=== PATIENT | male | born 1965 | race Caucasian/White ===

== ENCOUNTER 2023-09-18 18:56 | Inpatient (IN) | payer OTHER, SELFPAY ==
[2023-09-18] VITALS (57 sets, daily range): BP systolic 133–181; BP diastolic 79–120; PULSE 131–142; RESP 16–45; TEMP 38.4–38.8; O2SAT 88–96; BMI 38.2
--- NOTE | 2023-09-18 19:03 | CTR_ITS ---
PROCEDURE INFORMATION: Exam: CT Head Without Contrast Exam date and time: 09/18/2023 7:25 PM Age: 57 years old Clinical indication: Other: Weakness whole body TECHNIQUE: Imaging protocol: Computed tomography of the head without contrast. Radiation optimization: All CT scans at this facility use at least one of these dose optimization techniques: automated exposure control; mA and/or kV adjustment per patient size (includes targeted exams where dose is matched to clinical indication); or iterative reconstruction. COMPARISON: No relevant prior studies available. RADIATION DOSE METRICS: Total DLP (mGy-cm): 1358 FINDINGS: Brain: Normal. No hemorrhage. Unremarkable white matter. No mass effect. Cerebral ventricles: No ventriculomegaly. Paranasal sinuses: Visualized sinuses are unremarkable. No fluid levels. Mastoid air cells: Visualized mastoid air cells are well aerated. Bones/joints: Unremarkable. No acute fracture. Soft tissues: Unremarkable. CT/CT head wo con* [id number] IMPRESSION: No acute intracranial abnormality.
--- NOTE | 2023-09-18 19:03 | XRR_ITS ---
PROCEDURE INFORMATION: Exam: XR Chest Exam date and time: 09/18/2023 7:20 PM Age: 57 years old Clinical indication: Fever and other: Weakness TECHNIQUE: Imaging protocol: Radiologic exam of the chest. Views: 1 view. COMPARISON: [place] [id number] 12/12/2018 11:12 PM FINDINGS: Lungs: Subtle opacities in the right lung base. Pleural spaces: Unremarkable. No pleural effusion. No pneumothorax. Heart/Mediastinum: Unremarkable. No cardiomegaly. Bones/joints: Unremarkable. XR/XR chest 1V portable [id number] IMPRESSION: Subtle opacities in the right lung base.
--- NOTE | 2023-09-18 19:07 | ECG_ITS ---
[facility] Test Date: 2023-09-18 Pat Name: Luther Julio Department: Room: Gender: Male Quahogger: : 1965 Requested By: Karyna Mckinley Order Number: [id number] Faye MD: Jarret Galicia M.D. Measurements Intervals Aurora Rate: 139 P: 26 NC: 141 QRS: 30 QRSD: 86 T: 30 QT: 271 QTc: 413 Interpretive Statements SINUS TACHYCARDIA NONSPECIFIC ST & T-WAVE ABNORMALITY No previous ECG available for comparison Electronically Signed On 09-19-2023 15:46:33 ASP NET SOFTWARE DEVELOPER by Jarret Galicia M.D. [email or web address] medical centerStickybitsmercy health st[facility].[id number] f
--- NOTE | 2023-09-18 19:14 | ED_ITS ---
HPI - Weakness 2 General: Chief complaint: Weakness Stated complaint: Weakness Time Seen by Provider: 09/18/23 18:57 Source: patient and EMS Mode of arrival: EMS Limitations: no limitations History of Present Illness: 57-year-old male states over the last 3 days he has had cough fever along with bodyaches. He states he had gotten progressively weaker he had a hard time walking today just from general malaise she denies any shortness of breath denies any productive cough he is febrile here 101.8 he states he has felt feverish at home but has not taken his temperature. He denies any abdominal pain denies any vomiting or diarrhea denies any chest pain. Denies headache. Associated symptoms: Reports chills and fever(s); Denies chest pain, dysuria, headache(s), nausea or vomiting Review of Systems 2 Const: Reports: fever(s), chills, body aches, change in appetite and fatigue Eyes: Denies: blurry vision or eye discomfort ENMT: Denies: throat pain or dental pain Card: Denies: chest pain Resp: Reports: non-productive cough; Denies: dyspnea GI: Denies: abdominal pain, nausea, vomiting or diarrhea : Denies: dysuria Musc: Denies: neck pain or back pain Skin/Breast: Denies: rash Neuro: Denies: headache(s) Physical Exam 2 Const: COMMON NORMALS: patient oriented x3 HENMT: COMMON NORMALS: normocephalic and atraumatic HEAD & SCALP: n ormocephalic and atraumatic THROAT: posterior oropharynx normal Eye: COMMON NORMALS: Equal, round and reactive pupils present and EOMs intact bilaterally PUPIL: Yes Equal, round and reactive pupils present Neck/C-Spine: COMMON NORMALS: full ROM and supple Chest: COMMONS NORMALS: normal inspection of the chest Resp: COMMON NORMALS: normal respiratory effort, No retractions, No use of accessory muscles and clear to auscultation bilaterally AUSCULTATION: clear to auscultation bilaterally Cardio: COMMON NORMALS: regular rhythm and No murmurs present (Cardio) R ATE: tachycardic RHYTHM: regular rhythm GI: COMMON NORMALS: Normal to inspection, nondistended, normoactive bowel sounds present, Soft to palpation, non-tender and no masses PALPATION: Yes Soft to palpation Extremity: COMMON NORMALS: normal to inspection and full ROM Neuro: COMMON NORMALS: patient oriented x3, moves all extremities and no focal motor deficits Psych: COMMON NORMALS: mental status grossly normal, Normal thought process present and cooperative THOUGHT PROCESS: Normal thought process present Skin: COMMON NORMALS: no rashes or lesions noted and no wounds GENERAL SKIN EXAM: no rashes or lesions noted Course 2 Vital Signs: Vital signs: Vital Signs Temperature 101.1 F H 09/18/23 20:10 Pulse Rate 132 H 09/18/23 22:35 Respiratory Rate 39 H 09/18/23 22:35 Blood Pressure 149/95 09/18/23 22:35 Pulse Oximetry 91 09/18/23 22:35 Oxygen Delivery Me thod Nasal Cannula 09/18/23 21:29 Oxygen Flow Rate 2 09/18/23 21:40 MDM - Weakness Medical Decision Making Patient presents with fever along with weakness he does have an elevated lactate consistent with likely sepsis he has not had any hypotension here is actually been hypertensive CT scan of his chest and abdomen are normal he had no severe back pain no headache no signs of meningitis or epidural abscess. His respiratory panel is pending he has cough congestion symptoms that could be an upper respiratory infection. He is given IV antibiotics I did give him IV fluid bolus here. I did not give him the full sepsis bolus as he does have a elevated BNP and also has an elevated BMI and feel that the full sepsis bolus would do more harm and overload him with fluids. I spoke to the hospitalist will admit. Medical Records I reviewed the patient's medical records. Lab Data I reviewed the patient's lab results. 09/18/23 19:45 09/18/23 19:45 Radiology Impressions Chest X-Ray 09/18/23 19:03 IMPRESSION: Subtle opacities in the right lung base. Head CT 09/18/23 19:03 IMPRESSION: No acute intracranial abnormality. Chest/Abdomen/Pelvis CT 09/18/23 20:13 IMPRESSION: 1. No pulmonary embolus. 2. No focal consolidation, pleural effusion or suspicious pulmonary nodules or masses. IMPRESSION: 1. No bowel obstruction or inflammatory process associated with the bowel. 2. No free air or significant free fluid in the abdomen or pelvis. 3. The appendix images normally. 4. Penile implant reservoir in the left inguinal station. Question contained reservoir rupture? Laboratory Results WBC 6.99 10^3/uL (3.29-11.43) 09/18/23 19:45 RBC 5.37 10^6/uL (3.85-5.65) 09/18/23 19:45 Hgb 14.50 g/dL (11.27-16.99) 09/18/23 19:45 Hct 43.7 % (37-53) 09/18/23 19:45 MCV 81.4 fl (82-101) L 09/18/23 19:45 MCH 27.0 pg (27-33) 09/18/23 19:45 MCHC 33.2 g/dL (30-55) 09/18/23 19:45 RDW 13.1 % (12.1-15.1) 09/18/23 19:45 Plt Count 191 10^3/cmm (157-399) 09/18/23 19:45 MPV 10.0 fL (7.4-10.4) 09/18/23 19:45 Neut % (Auto) 84.1 % 09/18/23 19:45 Lymph % (Auto) 5.4 % 09/18/23 19:45 Pierce % (Auto) 9.3 % 09/18/23 19:45 Eos % (Auto) 0.1 % 09/18/23:45 Baso % (Auto) 0.4 % 09/18/23:45 Neut # (Auto) 5.87 10^3/uL (1.8-7.7) 09/18/23 19:45 Lymph # (Auto) 0.4 10^3/uL (0.8-4.8) L 09/18/23 19:45 Pierce # (Auto) 0.7 10^3/uL (0.2-0.9) 09/18/23 19:45 Eos # (Auto) 0.0 10^3/uL (0.0-0.8) 09/18/23 19:45 Baso # (Auto) 0.0 10^3/uL (0.0-0.1) 09/18/23 19:45 Nucleated RBC % (auto) 0 % 09/18/23:45 Nucleated RBCs # 0.0 /100WBC 09/18/23 19:45 APTT 31.7 SECONDS (23.9-36.7) 09/18/23 19:45 Sodium 134 mmol/L (136-145) L 09/18/23 19:45 Potassium 4.1 mmol/L (3.5-5.1) 09/18/23 19:45 Chloride 98 mmol/L (98-107) 09/18/23 19:45 Carbon Dioxide 24 mmol/L (22-29) 09/18/23 19:45 Anion Gap 16.1 (5-19) 09/18/23 19:45 BUN 13 mg/dL (6-20) 09/18/23 19:45 Creatinine 0.8 mg/dL (0.7-1.2) 09/18/23 19:45 GFR Calculation 98.9 mL/min (90-130) 09/18/23 19:45 Glucose 308 mg/dL (65-115) H 09/18/23 19:45 Calculated Osmolality 290 mOsm/kg (285-295) 09/18/23 19:45 Lactic Acid 2.9 mmol/L (0.5-2.2) H 09/18/23 19:45 Calcium 8.4 mg/dL (8.5-10.5) L 09/18/23 19:45 Magnesium 1.3 mg/dL (1.7-2.3) L 09/18/23 19:45 Total Bilirubin 0.3 mg/dL (0.15-1.2) 09/18/23 19:45 AST 14 U/L (0-40) 09/18/23 19:45 ALT 17 U/L (0-41) 09/18/23 19:45 Alkaline Phosphatase 70 U/L (40-130) 09/18/23 19:45 NT-Pro-B Natriuret Pep 768 pg/mL (0-125) H 09/18/23 19:45 Total Protein 7.1 g/dL (6.6-8.7) 09/18/23 19:45 Albumin 3.9 g/dL (3.5-5.2) 09/18/23 19:45 Globulin 3.2 g/dL (1.3-4.6) 09/18/23 19:45 TSH 0.82 uIU/mL (0.27-4.20) 09/18/23 19:45 Urine Color Yellow (Yellow) 09/18/23 20:02 Urine Appearance Sl hazy (CLEAR) A 09/18/23 20:02 Urine pH 5 (5-7) 09/18/23 20:02 Ur Specific Albert 1.020 (1.005-1.030) 09/18/23 20:02 Urine Protein 1+ (Negative) H 09/18/23 20:02 Urine Glucose (UA) 4+ (Normal) H 09/18/23 20:02 Urine Ketones 1+ (Negative) H 09/18/23 20:02 Urine Blood 3+ (Negative) H 09/18/23 20:02 Urine Nitrate Negative (Negative) 09/18/23 20:02 Urine Bilirubin Neg (Negative) 09/18/23 20:02 Urine Urobilinogen Neg mg/dL (Negative) 09/18/23 20:02 Ur Leukocyte Esterase Negative (Negative) 09/18/23 20:02 Urine RBC 5-10 /hpf (0-2) H 09/18/23 20:02 Urine WBC None /hpf (0-5) 09/18/23 20:02 Ur Squamous Epith Cells None /hpf (0-5) 09/18/23 20:02 Amorphous Sediment Not Reportable 09/18/23 20:02 Urine Bacteria Trace /hpf (NONE) 09/18/23 20:02 Urine Mucus 2+ /hpf 09/18/23 20:02 Ethyl Alcohol < 10 mg/dL (0-10) 09/18/23 19:45 All radiology interpretation(s) finalized by discharge EKG Data EKG 1: I personally reviewed and interpreted this EKG as follows: EKG interpretation date: 09/18/23 EKG interpretation time: 19:07 Interpretation: sinus tach hr [address] or t wave abnormalities qrs 86 qtc 352 Discharge Plan Discharge Patient Disposition: Admitted As Inpatient Clinical Impression: Generalized weakness, Upper respiratory infection, Sepsis Condition: Stable Coding Level of Care Code ED Stock Roller for Kiana De Paz
[2023-09-18] MEDS: sodium chloride 0.9% 1,000 ML 999 ML IV ×3 (19:19→22:45)
[2023-09-18] MEDS: acetaminophen 325 mg Tablet 650 MG PO (19:34)
[2023-09-18 19:54] LABS: Basophils % 0.4 %; Eosinophils % 0.1 %; Hematocrit 43.7 % (37-53); Lymphocytes # 0.4 10^3/uL (0.8-4.8); Lymphocytes % 5.4 %; Mean Corpuscular HGB Conc 33.2 g/dL (30-55); Mean Corpuscular Volume 81.4 fl (82-101); Monocytes # 0.7 10^3/uL (0.2-0.9); Monocytes % 9.3 %; Neutrophils # 5.87 10^3/uL (1.8-7.7); Neutrophils % 84.1 %; Nucleated Red Blood Cells % 0 %; Platelet Count 191 10^3/cmm (157-399); Red Blood Count 5.37 10^6/uL (3.85-5.65); Red Cell Distribution Width 13.1 % (12.1-15.1); White Blood Count 6.99 10^3/uL (3.29-11.43)
[2023-09-18] MEDS: labetalol 5 mg/mL SDV 20mL 10 MG IVP (19:59)
--- NOTE | 2023-09-18 20:13 | CTR_ITS ---
PROCEDURE INFORMATION: Exam: CTA Chest With Contrast Exam date and time: 09/18/2023 9:13 PM Age: 57 years old Clinical indication: Abdominal pain; Generalized; Other: SOB; Prior surgery; Surgery date: 6+ months; Surgery type: Penis pump; Additional info: SOB, abd pain TECHNIQUE: Imaging protocol: Computed tomographic angiography of the chest with contrast. Exam focused on the arteries. 3D rendering (Not supervised by radiologist): MIP and/or 3D reconstructed images were created by the technologist. Radiation optimization: All CT scans at this facility use at least one of these dose optimization techniques: automated exposure control; mA and/or kV adjustment per patient size (includes targeted exams where dose is matched to clinical indication); or iterative reconstruction. Contrast material: OMNI 350; Contrast volume: 100 ml; Contrast route: INTRAVENOUS (IV); COMPARISON: CR (CHEST, ) 09/18/2023 7:20 PM RADIATION DOSE METRICS: Total DLP (mGy-cm): 1519 FINDINGS: Pulmonary arteries: No pulmonary embolus. Aorta: Unremarkable. No aortic aneurysm. No aortic dissection. Lungs: Unremarkable. No consolidation. No masses. Pleural spaces: Unremarkable. No pneumothorax. No pleural effusion. Heart: Unremarkable. No cardiomegaly. No pericardial effusion. Coronary arteries: Coronary arterial atherosclerotic calcifications are present. Lymph nodes: Unremarkable. No enlarged lymph nodes. Bones/joints: Unremarkable. No acute fracture. Soft tissues: Unremarkable. PROCEDURE INFORMATION: Exam: CT Abdomen And Pelvis With Contrast Exam date and time: 09/18/2023 9:13 PM Age: 57 years old Clinical indication: Abdominal pain; Generalized; Other: SOB; Prior surgery; Surgery date: 6+ months; Surgery type: Penis pump; Additional info: SOB, abd pain TECHNIQUE: Imaging protocol: Computed tomography of the abdomen and pelvis with contrast. Radiation optimization: All CT scans at this facility use at least one of these dose optimization techniques: automated exposure control; mA and/or kV adjustment per patient size (includes targeted exams where dose is matched to clinical indication); or iterative reconstruction. Contrast material: OMNI 350; Contrast volume: 100 ml; Contrast route: INTRAVENOUS (IV); COMPARISON: CR (CHEST, ) 09/18/2023 7:20 PM RADIATION DOSE METRICS: Total DLP (mGy-cm): 1519 FINDINGS: Tubes, catheters and devices: Penile implant reservoir in the left inguinal station. Liver: Normal. No mass. Gallbladder and bile ducts: Normal. No calcified stones. No ductal dilation. Pancreas: Normal. No ductal dilation. Spleen: Normal. No splenomegaly. Adrenal glands: Normal. No mass. Kidneys and ureters: Normal. No hydronephrosis. Stomach and bowel: Unremarkable. No obstruction. No mucosal thickening. Appendix: No evidence of appendicitis. Intraperitoneal space: Unremarkable. No free air. No significant fluid collection. Vasculature: Unremarkable. No abdominal aortic aneurysm. Lymph nodes: Unremarkable. No enlarged lymph nodes. Urinary bladder: Unremarkable as visualized. Reproductive: Unremarkable as visualized. Bones/joints: Unremarkable. No acute fracture. Soft tissues: Unremarkable. CT/CT angio chest w abd pel w con IMPRESSION: 1. No pulmonary embolus. 2. No focal consolidation, pleural effusion or suspicious pulmonary nodules or masses. IMPRESSION: 1. No bowel obstruction or inflammatory process associated with the bowel. 2. No free air or significant free fluid in the abdomen or pelvis. 3. The appendix images normally. 4. Penile implant reservoir in the left inguinal station. Question contained reservoir rupture?
[2023-09-18 20:14] LABS: Lactic Sepsis W/Reflex 2.9 mmol/L (0.5-2.2)
[2023-09-18 20:17] LABS: Add Urine Microscopic? YES; Bilirubin Urine Neg (Negative); Blood Urine 3+ (Negative); Glucose Urine UA 4+ (Normal); Ketones Urine 1+ (Negative); Leukocyte Esterase Urine Negative (Negative); Nitrate Urine Negative (Negative); Protein Urine 1+ (Negative); Urine Color Yellow (Yellow); Urobilinogen Urine Neg (Negative); pH Urine 5 (5-7)
[2023-09-18 20:18] LABS: Add Urine Culture? No; Bacteria Urine TRACE /hpf; Mucus Urine 2+ /hpf; Urine Appearance SL Hazy (CLEAR)
[2023-09-18 20:23] LABS: Alanine Aminotransferase 17 U/L (0-41); Albumin Level 3.9 g/dL (3.5-5.2); Alkaline Phosphatase 70 U/L (40-130); Anion Gap 16.1 (5-19); Aspartate Amino Transferase 14 U/L (0-40); Blood Urea Nitrogen 13 mg/dL (6-20); Calcium 8.4 mg/dL (8.5-10.5); Carbon Dioxide 24 mmol/L (22-29); Chloride 98 mmol/L (98-107); Globulin 3.2 g/dL (1.3-4.6); Glomerular Filtration Rate 98.9 mL/min (90-130); Glucose 308 mg/dL (65-115); Magnesium 1.3 mg/dL (1.7-2.3); NT Pro B Type Natriuretic Pept 768 pg/mL (0-125); Osmolality Calculated 290 mOsm/kg (285-295); Potassium 4.1 mmol/L (3.5-5.1); Sodium 134 mmol/L (136-145); Thyroid Stimulating Hormone 0.82 uIU/mL (0.27-4.20); Total Bilirubin 0.3 mg/dL (0.15-1.2); Total Protein 7.1 g/dL (6.6-8.7)
[2023-09-18 20:26] LABS: Alcohol Level < 10 mg/dL (0-10)
[2023-09-18 20:33] LABS: Partial Thromboplastin Time 31.7 SECONDS (23.9-36.7)
[2023-09-18] MEDS: azithromycin 500 MG in sodium chloride 0.9% 250 ML 250 MG IV (20:34)
[2023-09-18] MEDS: cefTRIAXone 1,000 MG in sodium chloride 0.9% (plus) 50 ML 100 MG IV (20:38)
[2023-09-18 21:37] LABS: Reflex Lactate Order REFLEX LACTIC ORDERD
[2023-09-19] VITALS (11 sets, daily range): BP systolic 151–177; BP diastolic 92–103; PULSE 104–139; RESP 18–36; TEMP 37.1–38.6; O2SAT 88–98; BMI 38.2; BMI 39.7
--- NOTE | 2023-09-19 00:40 | US_ITS ---
WS: [id number] ULTRASOUND SOFT TISSUES LEFT inguinal region. HISTORY: L inguinal pump reservoir - rupture? COMPARISON: CT 09/18/2023 TECHNIQUE: 2-D and color Doppler imaging is submitted. There is an irregular fluid collection in the LEFT inguinal region associated with the reservoir of t he penile implant. This fluid collection measures 4.9 x 5.5 x 4.4 cm and is irregular shaped. Althoug h the collection is irregular shape is it is contained. No additional collections are identified. The re is part of the penile implant centrally causing some low-level echoes. IMPRESSION: 1. There is an irregular shaped fluid collection in the LEFT inguinal region which corresponds to th e reservoir of the penile implant. This is a contained collection with no extravasation of the fluid. Typically these reservoirs are more rounded in shape but if this is a rupture it is contained. 2. No additional fluid collections.
--- NOTE | 2023-09-19 00:49 | P.HP_ITS ---
Providers/Chief Complaint 2 Admitting Physician: Goyo Vogel Primary Care Provider: Ethan Rider Chief Complaint: Weakness History of Present Illness Pleasant 57-year-old gentleman with history of diabetes, HTN, HLD, ED has been feeling unwell for several days with malaise, chills, some upper respiratory symptoms including sneezing, sore throat, coughing, during ER with sinus tachycardia 130s, tachypnea in the 30s, fever 101.8, without leukocytosis, with lymphopenia 0.4. Respiratory viral panel obtained and pending. Chest x-ray with subtle opacities in the right lung base, but lungs unremarkable on CT chest abdomen pelvis without suggestion of pneumonia. No consolidation. Unremarkable CT abdomen. Incidentally noted penile implant reservoir in the left inguinal station. Questioned contained reservoir rupture. He denies having any pain or discomfort in the left groin or genitals, no localized swelling, erythema, tenderness. The implant has not been functioning for some time. Discussed with ER physician who deemed infectious etiology related to the pump unlikely. His reports that his urine has been somewhat concentrated/yellow appearing. He has been having lower back pain with lifting objects. Review of Systems 2 Const: Reports: fever(s), chills and malaise ENMT: Reports: throat pain and nasal discharge Card: Denies: chest pain, edema, pre-syncope or dyspnea on exertion Resp: Reports: non-productive cough; Denies: dyspnea, productive cough, change in phlegm color or hemoptysis GI: Denies: abdominal pain, nausea, vomiting, diarrhea, constipation, hematochezia or melena : Denies: flank pain, difficulty urinating, urinary frequency or hematuria Musc: Denies: back pain, joint swelling or joint redness Skin/Breast: Denies: rash or new lesions Neuro: Denies: headache(s), numbness in extremities, weakness in extremities, dizziness, confusion or seizure-like activity Medications/Allergies Allergies Allergy/AdvReac Type Severity Reaction Status Date / Time Cephalosporins Allergy Unknown Verified 09/18/23 19:07 PFSH Acute 2 PFSH: Medical History HTN (hypertension) DM type 2 (diabetes mellitus, type 2) Surgical History History of penile implant Vitals/I&O/Wt Last Vital Signs Temp 100 F H 09/19/23 00:00 Pulse 132 H 09/18/23 23:35 Resp 35 H 09/18/23 23:35 BP 152/96 09/18/23 23:35 Pulse Ox 92 09/19/23 00:00 O2 Del Method Nasal Cannula 09/19/23 00:13 O2 Flow Rate 2 09/19/23 00:00 09/18/23 09/18/23 09/19/23 14:59 22:59 06:59 Intake Total 2300 / 2300 Balance 2300 / 2300 Weight last 48 hrs Weight 104.326 kg Weight 104.326 kg Physical Exam 2 Narrative: Accompanied by his Const: COMMON NORMALS: patient oriented x3 and alert GENERAL APPEARANCE: c ooperative ORIENTATION/CONSCIOUSNESS: Yes awake OTHER: Having chills HENMT: COMMON NORMALS: oropharynx normal Neck/C-Spine: COMMON NORMALS: no JVD Resp: COMMON NORMALS: normal respiratory effort and clear to auscultation bilaterally AUSCULTATION: clear to auscultation bilaterally Cardio: COMMON NORMALS: no JVD, regular rhythm, S1 normal heart sound present, S2 normal heart sound present and No murmurs present (Cardio) RHYTHM: regular rhythm HEART SOUNDS: S1 normal heart sound present and S2 normal heart sound present GI: COMMON NORMALS: Normal to inspection, nondistended, normoactive bowel sounds present, Soft to palpation and non-tender PALPATION: Yes Soft to palpation : OTHER: No swelling erythema or tenderness in the left inguinal area. Extremity: COMMON NORMALS: no joint enlargement and no pedal edema Neuro: COMMON NORMALS: patient oriented x3 and moves all extremities S ENSORIUM/ORIENTATION: Yes alert Skin: COMMON NORMALS: no rashes or lesions noted GENERAL SKIN EXAM: no rashes or lesions noted Data 09/18/23 19:45 09/18/23 19:45 Micro: Microbiology 09/18/23 19:40 Blood Culture - Preliminary Blood SPECIMEN COLLECTED 09/18/23 19:45 Blood Culture - Preliminary Blood SPECIMEN COLLECTED A&P Assessment and plan (1) Sepsis: Has had URI symptoms, malaise for a couple of days, as he did not feel well also did not take his medication including metoprolol for last 2 days. With fever up to 102, sinus tachycardia 130s. Tachypnea. Sepsis without endorgan dysfunction. Noted mild lactic acid elevation 2.9. With upper respiratory symptoms suspicion of possible viral infection, however, blood cultures collected as well to assess for any bacteremia, CT chest abdomen pelvis reviewed. Reviewed vitals, CBC, PTT, CMP, magnesium, NT-proBNP, TSH, UA, EtOH, AT. Sinuses unremarkable. For now empirically will give meropenem, has received ceftriaxone, azithromycin in ER. Monitor for risk of seizure follow-up blood culture. Per ER physician questioned contained rupture of penile implant incidentally noted on CT given his symptomatology otherwise and lack of focal symptoms and left inguinal area where the reservoir is located considered unlikely source of infectious etiology tomorrow, will additionally assess with soft tissue ultrasound. Follow-up blood culture. Will need to follow-up with urology given pump is nonfunctional. Plan Diabetes: Long-acting insulin 60 units daily. Sliding scale insulin. Accu- Cheks. Consistent carb diet. Hypertension: Monitor blood pressures. Resume metoprolol. Has not taken metoprolol several days, likely contribution of some rebound tachycardia/withdrawal. Attestations 2 Medical Necessity Statement*: Admission of over 2 midnights anticipated for assessment of management of sepsis of unclear etiology. Diagnoses Sepsis A41.9
[2023-09-19 01:27] LABS: Adenovirus Not Detected (NOT DETECT); Chlamydia Pneumoniae Not Detected (NOT DETECT); Coronavirus 229E,HKU1,NL63,OC4 Not Detected (NOT DETECT); Human Metapneumovirus Not Detected (NOT DETECT); Human Rhinovirus/Enterovirus Not Detected (NOT DETECT); Influenza A Detected (NOT DETECT); Influenza A H1 Not Detected (NOT DETECT); Influenza A H1-2009 Not Detected (NOT DETECT); Influenza A H3 Detected (NOT DETECT); Influenza B Not Detected (NOT DETECT); Mycoplasma Pneumoniae Not Detected (NOT DETECT); Parainfluenza Virus Type 1 Not Detected (NOT DETECT); Parainfluenza Virus Type 2 Not Detected (NOT DETECT); Parainfluenza Virus Type 3 Not Detected (NOT DETECT); Parainfluenza Virus Type 4 Not Detected (NOT DETECT); Respiratory Syncytial Virus A Not Detected (NOT DETECT); Respiratory Syncytial Virus B Not Detected (NOT DETECT); SARS-COV-2 Not Detected (NOT DETECT)
[2023-09-19] MEDS: sodium chloride 0.9% 1,000 ML 999 ML IV (02:00)
[2023-09-19] MEDS: heparin 5,000 unit/mL INJ 1 mL 5000 UNIT SUBCUT ×2 (02:01→14:23)
[2023-09-19] MEDS: lactated ringers 1,000 ML 100 ML IV (02:01)
[2023-09-19] MEDS: meropenem 1,000 MG in sodium chloride 0.9% (plus) 50 ML 100 MG IV ×2 (02:02→08:42)
[2023-09-19] MEDS: oseltamivir phosphate 75 mg Capsule PO ×3 (03:08→18:44)
[2023-09-19] MEDS: metoprolol tartrate 25 mg Tablet PO ×3 (03:08→20:44)
--- NOTE | 2023-09-19 04:45 | PC.NURSE ---
Upon entering room patient and found standing at foot of bed. Patient clothing in floor and floor found to be covered in urine, holding urinal. stated she, woke up to him getting up to urinate and was attempting to help him with urinal. Assisted patient back into bed, cleaned floor. Educated patient and on current bedrest orders, risks for falls during hospitalization, and use of call light; both verbalized understanding. Bedside table and call light within reach, bed alarm set.
[2023-09-19 06:26] LABS: Glucose Point of Care 271 mg/dL (70-110)
--- NOTE | 2023-09-19 08:25 | PC.PHAR ---
PT STATES HAS NEW INSULIN (LANTUS) WHICH IS ON HOLD UNTIL HE FINISHES THE LEVEMIR-HAS 3 WEEKS OF MED LEFT. PT ALSO STATES HAS NOT TAKEN ANY MEDICATION FOR 2 DAYS DUE TO BEING IN BED SICK ALL DAY.09/19/23
[2023-09-19] MEDS: insulin lispro 100 unit/1 mL SUBCUT ×2 (08:42→18:43)
[2023-09-19] MEDS: insulin glargine 100 units/1 mL 60 UNIT SUBCUT (08:43)
[2023-09-19 10:03] LABS: Rapid Strep A Test Negative (Negative)
--- NOTE | 2023-09-19 11:31 | W.PM.EVENTAC ---
Event Note Event Note: Patient is not experiencing any inguinal pain however was retaining urine He was tachycardic We had to place Mcdowell catheter today Soft tissue ultrasound showing contained fluid No fever this morning We turned down on his facemask to nasal cannula No active chest pain or shortness of breath Influenza positive Community-acquired pneumonia postviral bacterial pneumonia
[2023-09-19 12:34] LABS: D Dimer 0.33 ug/mLFEU (0-0.59)
--- NOTE | 2023-09-19 13:10 | ECG_ITS ---
[facility] Test Date: 2023-09-19 Pat Name: Luther Julio Department: Room: 108 Gender: Male Surgical Attendant: : 1965 Requested By: Zoran Mckenna Order Number: [id number] Reading MD: Jarret Galicia M.D. Measurements Intervals Irons Rate: 130 P: 51 GA: 148 QRS: 7 QRSD: 87 T: 56 QT: 285 QTc: 420 Interpretive Statements SINUS TACHYCARDIA NONSPECIFIC ST & T-WAVE ABNORMALITY Compared to ECG 09/18/2023 19:07:24 No significant changes Electronically Signed On 09-19-2023 15:45:28 DIRECTOR TRANSLATIONAL by Jarret Galicia M.D. [id number]
[2023-09-19] MEDS: dilTIAZem 5 mg/mL SDV 5 mL IVP (14:32)
[2023-09-19] MEDS: magnesium sulfate premix 1 GM/100 ML PIGGYBACK IV (14:33)
--- NOTE | 2023-09-19 17:30 | PC.NURSE ---
Patients is becoming upset and continues to tell nurse that her husbands condition is not stable. Nurse has attempted to educate this family member regarding the condition of her . Nurse told the that he has improved throughout the day and that vital signs reflect a stable condition. is not responsive to education. has listed complaints regarding dietary, and housekeeping. Nurse asked if she would like a paper and pen to write complaints down and speak with management. refused. Nurse then asked if the care provided to the patient by this nurse has been sufficient and she responded that she has been satisfied with the care this nurse has provided.
[2023-09-19 17:49] LABS: Glucose Point of Care 193 mg/dL (70-110)
[2023-09-19] MEDS: cefTRIAXone 1,000 MG in sodium chloride 0.9% (plus) 50 ML 100 MG IV (20:44)
[2023-09-20] VITALS (10 sets, daily range): BP systolic 116–173; BP diastolic 81–102; PULSE 88–104; RESP 16–36; TEMP 36.8–36.9; O2SAT 94–97; BMI 39.7
[2023-09-20] MEDS: heparin 5,000 unit/mL INJ 1 mL 5000 UNIT SUBCUT ×2 (01:09→15:14)
[2023-09-20 03:56] LABS: Basophils % 0.2 %; Eosinophils % 0.2 %; Hematocrit 38.8 % (37-53); Lymphocytes # 1.6 10^3/uL (0.8-4.8); Lymphocytes % 27.3 %; Mean Corpuscular HGB Conc 33.2 g/dL (30-55); Mean Corpuscular Hemoglobin 26.8 pg (27-33); Mean Corpuscular Volume 80.5 fl (82-101); Mean Platelet Volume 10.3 fL (7.4-10.4); Monocytes # 0.6 10^3/uL (0.2-0.9); Monocytes % 9.9 %; Neutrophils % 62.2 %; Nucleated Red Blood Cells % 0 %; Platelet Count 178 10^3/cmm (157-399); Red Blood Count 4.82 10^6/uL (3.85-5.65); Red Cell Distribution Width 13.2 % (12.1-15.1); White Blood Count 5.78 10^3/uL (3.29-11.43)
[2023-09-20 04:23] LABS: Alanine Aminotransferase 14 U/L (0-41); Albumin Level 3.3 g/dL (3.5-5.2); Alkaline Phosphatase 57 U/L (40-130); Anion Gap 14.4 (5-19); Aspartate Amino Transferase 19 U/L (0-40); Blood Urea Nitrogen 11 mg/dL (6-20); Calcium 7.9 mg/dL (8.5-10.5); Carbon Dioxide 24 mmol/L (22-29); Chloride 102 mmol/L (98-107); Globulin 3.2 g/dL (1.3-4.6); Glomerular Filtration Rate 115.4 mL/min (90-130); Glucose 108 mg/dL (65-115); Osmolality Calculated 284 mOsm/kg (285-295); Potassium 3.4 mmol/L (3.5-5.1); Sodium 137 mmol/L (136-145); Total Bilirubin 0.2 mg/dL (0.15-1.2); Total Protein 6.5 g/dL (6.6-8.7)
--- NOTE | 2023-09-20 04:24 | P.EN_ITS ---
Event Note Event Note: Patient's is requesting for transfer to [facility]. Want to transfer to [facility], but want me to call [facility] first. Called [facility], no beds currently available. Called [facility], they will check if they have beds, took his information. Awaiting call back from hospitalist.
[2023-09-20] MEDS: levoFLOXacin 750 mg Tablet PO (05:32)
--- NOTE | 2023-09-20 06:03 | PC.NURSE ---
Patients requested to see hospitalist, Dr. Vogel, regarding wanting to transfer patient to different facility. Notified hospitalist of request. Hospitalist and this nurse spoke to patient and about wishes to be transferred to another facility. While Hospitalist and this nurse were updating patient and on calls made regarding transfer became upset, raising voice and pointing fingers in hospitalist face. Security and assistant housekeeping manager were called to attempt to deescalate the situation. Attempts to deescalate the situation were not successful. At that time [employer] were contacted, they were able to successfully deescalate the patients . Patient and reassured that we were attempting to find a facility to transfer patient to, that they felt met his current medical needs. No other question or concerns were voiced by either at this time. Patient resting in bed, in chair at bedside.
[2023-09-20 07:32] LABS: Glucose Point of Care 118 mg/dL (70-110)
[2023-09-20] MEDS: hyDRALAzine 20 mg/mL INJ 1 mL 10 MG IVP (08:57)
[2023-09-20] MEDS: insulin glargine 100 units/1 mL 60 UNIT SUBCUT (08:57)
[2023-09-20] MEDS: metoprolol tartrate 25 mg Tablet PO ×2 (08:57→22:16)
[2023-09-20] MEDS: oseltamivir phosphate 75 mg Capsule PO ×2 (08:57→17:48)
--- NOTE | 2023-09-20 11:28 | P.PN_ITS ---
Subjective 2 Subjective: Patient is very calm and cooperative He wants to be transferred for urology I did tell the patient and his who is at the bedside that I have to present this case to [facility] urologist they have to accept him before we transfer him out is stating that if she had known that there is no urology available in the hospital she could have requested transfer from the ER Patient was examined in presence of her nurse 's concerns were addressed, We had a long discussion this morning, Vitals/I&O/Wt Last Vital Signs Temp 98.3 F 09/20/23 10:58 Pulse 94 09/20/23 10:58 Resp 36 H 09/20/23 10:58 BP 161/96 09/20/23 10:58 Pulse Ox 96 09/20/23 10:58 O2 Del Method Room Air 09/20/23 10:58 O2 Flow Rate 5 09/20/23 10:00 09/19/23 09/20/23 09/20/23 22:59 06:59 14:59 Intake Total 1150 / 1440 240 / 240 Output Total 550 / 700 1000 / 1700 850 / 850 Balance 600 / 740 -1000 / -260 -610 / -610 Weight last 48 hrs Weight 108.409 kg Weight 108.409 kg Weight 108.409 kg Weight 135.08 kg Weight 104.326 kg Weight 104.326 kg Physical Exam 2 Narrative: Patient is laying supine No sign of fluid overload Currently on 2 to 3 L of nasal cannula Hypertensive GCS 15 Nonfocal neuroexam Abdomen soft No significant pain in groin area Tachycardia improving Data 09/20/23 03:15 09/20/23 03:15 Micro: Microbiology 09/18/23 19:40 Blood Culture - Preliminary Blood NEGATIVE TO DATE 09/18/23 19:45 Blood Culture - Preliminary Blood NEGATIVE TO DATE A&P Assessment and plan (1) HTN (hypertension): (2) DM type 2 (diabetes mellitus, type 2): (3) Upper respiratory infection: (4) Penile implant failure: (5) Generalized weakness: Plan Sepsis related to upper respite tract infection: Resolved Penile implant in place reservoir fluid although ultrasound is showing asymmetrical fluid reservoir it seems to be contained patient is not complaining of any excruciating pain No fever no leukocytosis Acute hypoxia postviral bacterial pneumonia Continue to biotics Wean oxygen to room air Patient looks very comfortable laying supine D-dimer unremarkable tachycardia has improved after getting Cardizem, patient is hypertensive today adjust antihypertensive regimen received IV hydralazine Will try [facility] transfer line to see if urologist would accept this case Patient has no questions or concerns, his is at the bedside and has not let him talk at all, she is being very rude and argumentative despite our attempts to get in touch with [facility] urologist Overnight events were reviewed as well Attestations 2 Medical Necessity Statement*: Transferred to [facility] once get accepted Coding Level of Care Code 00201 Diagnoses HTN (hypertension) I10 DM type 2 (diabetes mellitus, type 2) E11.9 Upper respiratory infection J06.9 Penile implant failure T83.410A Generalized weakness R53.1
--- NOTE | 2023-09-20 11:39 | P.TS_ITS ---
Transfer Summary Providers Date of Admission: 09/19/23 00:05 Date of Discharge/Transfer: 09/20/23 Attending Provider at Admission: Goyo Vogel Attending Provider at Transfer: Zoran Mckenna MD Primary Care Provider: Ethan Rider Transfer Plans: Anticipated date of transfer: 09/20/23 . Diagnoses at Discharge Discharge Diagnosis (1) HTN (hypertension): Status: Acute (2) DM type 2 (diabetes mellitus, type 2): Status: Acute (3) Upper respiratory infection: Status: Acute (4) Penile implant failure: Status: Acute (5) Generalized weakness: Status: Acute Reason for Visit Reason for Visit Weakness Hospital Course Hospital Course 57 male with history of penile implant came in for upper respiratory infection symptoms worsening, started antibiotics for postviral bacterial pneumonia, he tested positive for influenza A, he was requiring 2 to 3 L of nasal cannula, CT chest did not show PE no consolidation or mass, respirate therapist was weaning him off to room air, he remained afebrile no leukocytosis, creatinine is normal, there was concern for penile implant reservoir rupture did ultrasound and CT abdomen pelvis which showed 4.9 x 5.5 cm fluid collection which is asymmetrical however it is contained it is not free-flowing, patient does not complain of any groin pain, he will be transferred to [facility] urology service: Accepting physician will be Dr. Freitas. Patient and family agreeable Physical Exam Narrative: GCS 15 Nonfocal neuroexam Hypertensive Currently on 1 to 2 L GCS 15 abdomen soft Nonfocal neuroexam TS Data Studies Completed and Pending Pending at discharge Category Date Time Status Blood Culture Stat Lab 09/18/23 19:45 Results Complete Blood Count w/Auto AM LABS Lab 09/21/23 04:00 Ordered Complete Blood Count w/Auto AM LABS Lab 09/22/23 04:00 Ordered Comprehensive Metabolic Panel AM LABS Lab 09/21/23 04:00 Ordered Comprehensive Metabolic Panel AM LABS Lab 09/22/23 04:00 Ordered Streptococcus Culture Group A Routine Lab 09/19/23 09:19 Received Completed Studies During Hospitalization Category Date Time Status CT angio chest w abd pel w con Stat Cat Scan 09/18/23 20:[address] head wo con* [id number] Stat Cat Scan 09/18/23 19:03 Completed XR chest 1V portable [id number] Stat Exams 09/18/23 19:03 Completed US soft tissue and or extremity [US soft tissue/ Ultrasound 09/19/23 00:40 Completed extremity [id number]] Routine Laboratory Last Values WBC 5.78 10^3/uL (3.29-11.43) 09/20/23 03:15 RBC 4.82 10^6/uL (3.85-5.65) 09/20/23 03:15 Hgb 12.90 g/dL (11.27-16.99) 09/20/23 03:15 Hct 38.8 % (37-53) 09/20/23 03:15 MCV 80.5 fl (82-101) L 09/20/23 03:15 MCH 26.8 pg (27-33) L 09/20/23 03:15 MCHC 33.2 g/dL (30-55) 09/20/23 03:15 RDW 13.2 % (12.1-15.1) 09/20/23 03:15 Plt Count 178 10^3/cmm (157-399) 09/20/23 03:15 MPV 10.3 fL (7.4-10.4) 09/20/23 03:15 Neut % (Auto) 62.2 % 09/20/23 03:15 Lymph % (Auto) 27.3 % 09/20/23 03:15 [place] % (Auto) 9.9 % 09/20/23 03:15 Eos % (Auto) 0.2 % 09/20/23 03:15 Baso % (Auto) 0.2 % 09/20/23 03:15 Neut # (Auto) 3.60 10^3/uL (1.8-7.7) 09/20/23 03:15 Lymph # (Auto) 1.6 10^3/uL (0.8-4.8) 09/20/23 03:15 [place] # (Auto) 0.6 10^3/uL (0.2-0.9) 09/20/23 03:15 Eos # (Auto) 0.0 10^3/uL (0.0-0.8) 09/20/23 03:15 Baso # (Auto) 0.0 10^3/uL (0.0-0.1) 09/20/23 03:15 Nucleated RBC % (auto) 0 % 09/20/23 03:15 Nucleated RBCs # 0.0 /100WBC 09/20/23 03:15 APTT 31.7 SECONDS (23.9-36.7) 09/18/23 19:45 D-Dimer 0.33 ug/mLFEU (0-0.59) 09/19/23 11:59 Sodium 137 mmol/L (136-145) 09/20/23 03:15 Potassium 3.4 mmol/L (3.5-5.1) L 09/20/23 03:15 Chloride 102 mmol/L (98-107) 09/20/23 03:15 Carbon Dioxide 24 mmol/L (22-29) 09/20/23 03:15 Anion Gap 14.4 (5-19) 09/20/23 03:15 BUN 11 mg/dL (6-20) 09/20/23 03:15 Creatinine 0.7 mg/dL (0.7-1.2) 09/20/23 03:15 GFR Calculation 115.4 mL/min (90-130) 09/20/23 03:15 Glucose 108 mg/dL (65-115) 09/20/23 03:15 POC Glucose 118 mg/dL (70-110) H 09/20/23 07:19 Calculated Osmolality 284 mOsm/kg (285-295) L 09/20/23 03:15 Lactic Acid 2.9 mmol/L (0.5-2.2) H 09/18/23 19:45 Lactic Acid (Sepsis) 2.0 mmol/L (0.5-2.2) 09/18/23 22:54 Calcium 7.9 mg/dL (8.5-10.5) L 09/20/23 03:15 Magnesium 1.3 mg/dL (1.7-2.3) L 09/18/23 19:45 Total Bilirubin 0.2 mg/dL (0.15-1.2) 09/20/23 03:15 AST 19 U/L (0-40) 09/20/23 03:15 ALT 14 U/L (0-41) 09/20/23 03:15 Alkaline Phosphatase 57 U/L (40-130) 09/20/23 03:15 NT-Pro-B Natriuret Pep 768 pg/mL (0-125) H 09/18/23 19:45 Total Protein 6.5 g/dL (6.6-8.7) L 09/20/23 03:15 Albumin 3.3 g/dL (3.5-5.2) L 09/20/23 03:15 Globulin 3.2 g/dL (1.3-4.6) 09/20/23 03:15 TSH 0.82 uIU/mL (0.27-4.20) 09/18/23 19:45 Urine Color Yellow (Yellow) 09/18/23 20:02 Urine Appearance Sl hazy (CLEAR) A 09/18/23 20:02 Urine pH 5 (5-7) 09/18/23 20:02 Ur Specific [place] 1.020 (1.005-1.030) 09/18/23 20:02 Urine Protein 1+ (Negative) H 09/18/23 20:02 Urine Glucose (UA) 4+ (Normal) H 09/18/23 20:02 Urine Ketones 1+ (Negative) H 09/18/23 20:02 Urine Blood 3+ (Negative) H 09/18/23 20:02 Urine Nitrate Negative (Negative) 09/18/23 20:02 Urine Bilirubin Neg (Negative) 09/18/23 20:02 Urine Urobilinogen Neg mg/dL (Negative) 09/18/23 20:02 Ur Leukocyte Esterase Negative (Negative) 09/18/23 20:02 Urine RBC 5-10 /hpf (0-2) H 09/18/23 20:02 Urine WBC None /hpf (0-5) 09/18/23 20:02 Ur Squamous Epith Cells None /hpf (0-5) 09/18/23 20:02 Amorphous Sediment Not Reportable 09/18/23 20:02 Urine Bacteria Trace /hpf (NONE) 09/18/23 20:02 Urine Mucus 2+ /hpf 09/18/23 20:02 Ethyl Alcohol < 10 mg/dL (0-10) 09/18/23 19:45 Adenovirus (PCR) Not detected (NOT DETECT) 09/18/23 19:13 C. pneumoniae DNA (PCR) Not detected (NOT DETECT) 09/18/23 19:13 Coronavirus 229E (PCR) Not detected (NOT DETECT) 09/18/23 19:13 Human Metapneumovir PCR Not detected (NOT DETECT) 09/18/23 19:13 Influenza A (H1) PCR Not detected (NOT DETECT) 09/18/23 19:13 Influ A (H1/09) PCR Not detected (NOT DETECT) 09/18/23 19:13 Influenza A (H3) PCR Detected (NOT DETECT) A 09/18/23 19:13 Influenza Type A (PCR) Detected (NOT DETECT) A 09/18/23 19:13 Influenza Type B (PCR) Not detected (NOT DETECT) 09/18/23 19:13 M. pneumoniae (PCR) Not detected (NOT DETECT) 09/18/23 19:13 Parainfluenza 1 (PCR) Not detected (NOT DETECT) 09/18/23 19:13 Parainfluenza 2 (PCR) Not detected (NOT DETECT) 09/18/23 19:13 Parainfluenza 3 (PCR) Not detected (NOT DETECT) 09/18/23 19:13 Parainfluenza 4 (PCR) Not detected (NOT DETECT) 09/18/23 19:13 RSV Type A (PCR) Not detected (NOT DETECT) 09/18/23 19:13 RSV Type B (PCR) Not detected (NOT DETECT) 09/18/23 19:13 Entero/Rhino (PCR) Not detected (NOT DETECT) 09/18/23 19:13 SARS-CoV-2 (PCR) Not detected (NOT DETECT) 09/18/23 19:13 Group A Strep Rapid Negative (Negative) 09/19/23 09:19 Radiology Impressions Chest X-Ray 09/18/23 19:03 IMPRESSION: Subtle opacities in the right lung base. Head CT 09/18/23 19:03 IMPRESSION: No acute intracranial abnormality. Chest/Abdomen/Pelvis CT 09/18/23 20:13 IMPRESSION: 1. No pulmonary embolus. 2. No focal consolidation, pleural effusion or suspicious pulmonary nodules or masses. IMPRESSION: 1. No bowel obstruction or inflammatory process associated with the bowel. 2. No free air or significant free fluid in the abdomen or pelvis. 3. The appendix images normally. 4. Penile implant reservoir in the left inguinal station. Question contained reservoir rupture? Recent Clincial Data Last Vital Signs Temp 98.3 F 09/20/23 10:58 Pulse 94 09/20/23 10:58 Resp 36 H 09/20/23 10:58 BP 161/96 09/20/23 10:58 Pulse Ox 96 09/20/23 10:58 O2 Del Method Room Air 09/20/23 10:58 O2 Flow Rate 5 09/20/23 10:00 Vital Signs Temp Pulse Resp BP Pulse Ox O2 Del Method O2 Flow Rate 09/20/23 10:58 98.3 F 94 36 H 161/96 96 Room Air 09/20/23 10:00 102 H 36 H 130/86 95 Nasal Cannula 5 09/20/23 07:11 98.4 F 96 20 H 173/102 95 Nasal Cannula 09/20/23 04:30 93 29 H 172/98 94 Nasal Cannula 09/20/23 00:35 88 36 H 154/91 96 Intake & Output/Weight 09/18/23 09/19/23 09/20/23 09/21/23 06:59 06:59 06:59 06:59 Intake Total 4830 / 4830 1440 / 1440 240 / 240 Output Total 1700 / 1700 850 / 850 Balance 4830 / 4830 -260 / -260 -610 / -610 Weight 108.409 kg 108.409 kg Vitals Last Vital Signs Temp 98.3 F 09/20/23 10:58 Pulse 94 09/20/23 10:58 Resp 36 H 09/20/23 10:58 BP 161/96 09/20/23 10:58 Pulse Ox 96 09/20/23 10:58 O2 Del Method Room Air 09/20/23 10:58 O2 Flow Rate 5 09/20/23 10:00 TS Medications Medications Acetaminophen (Acetaminophen 325 Mg Tablet) 650 mg PO Q6H PRN PRN Reason: Mild/Mod Pain Or Temp >/= 101 Amlodipine Besylate (Amlodipine 10 Mg Tablet) 10 mg PO DAILY [facility] Heparin Sodium (Porcine) (Heparin 5,000 Unit/Ml Inj 1 Ml) 5,000 unit SUBCUT Q12H RANI Last Admin: 09/20/23 01:09 Dose: 5,000 unit Dextrose (D5w) 500 mls @ 0 mls/hr IV ONCE PRN; Protocol PRN Reason: Adult Acute Hypoglycemia Prot Dextrose (D10w) 125 mls @ 750 mls/hr IV PRN PRN; Protocol PRN Reason: Adult Acute Hypoglycemia Nursing Protocol Dextrose (D10w) 250 mls @ 1,000 mls/hr IV PRN PRN; Protocol PRN Reason: Adult Acute Hypoglycemia Nursing Protocol Ceftriaxone Sodium 1,000 mg/ (Sodium Chloride) 50 mls @ 100 mls/hr IV Q24H [facility]; Protocol Last Infusion: 09/19/23 21:59 Dose: Infused Insulin Glargine (Insulin Glargine 100 Units/1 Ml) 60 unit SUBCUT DAILY [facility] Last Admin: 09/20/23 08:57 Dose: 60 unit Insulin Human Lispro (Insulin Lispro 100 Unit/1 Ml) 0 unit SUBCUT WM&BEDTIME [facility]; Protocol Last Admin: 09/20/23 07:49 Dose: Not Given Levofloxacin (Levofloxacin 750 Mg Tablet) 750 mg PO DAILY@0600 [facility]; Protocol Last Admin: 09/20/23 05:32 Dose: 750 mg Lisinopril (Lisinopril 10 Mg Tablet) 10 mg PO DAILY [facility] Metoprolol Tartrate (Metoprolol Tartrate 25 Mg Tablet) 25 mg PO BID@0900,2100 [facility] Last Admin: 09/20/23 08:57 Dose: 25 mg Ondansetron HCl (Ondansetron 2 Mg/Ml Sdv 2 Ml) 4 mg IVP Q8H PRN PRN Reason: vomiting, or N/V if npo Oseltamivir Phosphate (Oseltamivir Phosphate 75 Mg Capsule) 75 mg PO BID [facility] Last Admin: 09/20/23 08:57 Dose: 75 mg Discontinued Medications Acetaminophen (Acetaminophen 325 Mg Tablet) 650 mg PO ONCE ONE Stop: 09/18/23 19:12 Last Admin: 09/18/23 19:34 Dose: 650 mg Diltiazem HCl (Diltiazem 5 Mg/Ml Sdv 5 Ml) 5 mg IVP ONCE ONE Stop: 09/19/23 14:07 Last Admin: 09/19/23 14:32 Dose: 5 mg Hydralazine HCl (Hydralazine 20 Mg/Ml Inj 1 Ml) 10 mg IVP ONCE ONE Stop: 09/20/23 08:30 Last Admin: 09/20/23 08:57 Dose: 10 mg Sodium Chloride (Sodium Chloride 0.9%) 1,000 mls @ 999 mls/hr IV .Q1H1M [facility]ANI Stop: 09/18/23 21:15 Last Infusion: 09/18/23 21:11 Dose: Infused Azithromycin 500 mg/ Sodium (Chloride) 250 mls @ 250 mls/hr IV ONCE ONE; Protocol Stop: 09/18/23 20:46 Last Infusion: 09/18/23 21:25 Dose: Infused Ceftriaxone Sodium 1,000 mg/ (Sodium Chloride) 50 mls @ 100 mls/hr IV ONCE ONE; Protocol Stop: 09/18/23 20:16 Last Infusion: 09/18/23 21:11 Dose: Infused Sodium Chloride (Sodium Chloride 0.9%) 1,000 mls @ 999 mls/hr IV .Q1H1M ONE Stop: 09/18/23 23:40 Last Infusion: 09/19/23 00:53 Dose: Infused Sodium Chloride (Sodium Chloride 0.9%) 1,000 mls @ 999 mls/hr IV .Q1H1M ONE Stop: 09/19/23 01:07 Last Infusion: 09/19/23 02:53 Dose: Infused Meropenem 1,000 mg/ Sodium (Chloride) 50 mls @ 100 mls/hr IV Q8H [facility]ANI; Protocol Last Infusion: 09/19/23 09:31 Dose: Infused Lactated Ringer's (Lactated Ringers) 1,000 mls @ 100 mls/hr IV .Q10H [facility]ANI Last Admin: 09/20/23 09:33 Dose: Not Given Magnesium Sulfate/Dextrose (Magnesium Sulfate Premix) 1 gm in 100 mls @ 200 mls/hr IV ONCE ONE Stop: 09/19/23 14:35 Last Infusion: 09/19/23 15:23 Dose: Infused Iohexol (Iohexol 350 Mg/Ml 500 Ml Btl (Per Ml)) 100 ml .ROUTE .STK-MED ONE Stop: 09/19/23 08:52 Labetalol HCl (Labetalol 5 Mg/Ml Sdv 20ml) 10 mg IVP ONCE ONE Stop: 09/18/23 19:48 Last Admin: 09/18/23 19:59 Dose: 10 mg Allergies Cephalosporins Allergy (Verified 09/18/23 19:07) Unknown Home Medications amlodipine 5 mg tablet 5 mg PO DAILY 09/19/23 [History Confirmed 09/19/23] aspirin 81 mg tablet,delayed release 81 mg PO DAILY 09/19/23 [History Confirmed 09/19/23] cholecalciferol (vitamin D3) 1,250 mcg (50,000 unit) capsule 1,250 mcg PO Q7D 09/19/23 [History Confirmed 09/19/23] gabapentin 100 mg capsule 100 mg PO Q12H 09/19/23 [History Confirmed 09/19/23] hydrochlorothiazide 12.5 mg capsule 12.5 mg PO DAILY 09/19/23 [History Confirmed 09/19/23] insulin detemir U-100 100 unit/mL (3 mL) subcutaneous pen (Levemir FlexPen) 60 unit SUBCUT QAM 09/19/23 [History Confirmed 09/19/23] insulin glargine 100 unit/mL (3 mL) subcutaneous pen (Lantus Solostar U-100 Insulin) 60 unit SUBCUT QAM 09/19/23 [History Confirmed 09/19/23] losartan 100 mg tablet 100 mg PO DAILY 09/19/23 [History Confirmed 09/19/23] metformin 1,000 mg tablet 1,000 mg PO BID 09/19/23 [History Confirmed 09/19/23] metoprolol succinate 100 mg tablet,extended release 24 hr 100 mg PO DAILY 09/19/23 [History Confirmed 09/19/23] pravastatin 40 mg tablet 40 mg PO QPM 09/19/23 [History Confirmed 09/19/23] sitagliptin phosphate 100 mg tablet (Januvia) 100 mg PO DAILY 09/19/23 [History Confirmed 09/19/23] Discharge Plan Discharge Patient Disposition: Xfer Other Condition: Stable Prescriptions: Continued pravastatin 40 mg tablet 40 mg PO QPM metoprolol succinate 100 mg tablet extended release 24 hr 100 mg PO DAILY amlodipine 5 mg tablet 5 mg PO DAILY Aspir-81 81 mg Tablet,Delayed Release (Dr/Ec) 81 mg PO DAILY metformin 1,000 mg tablet 1,000 mg PO BID hydrochlorothiazide 12.5 mg capsule 12.5 mg PO DAILY gabapentin 100 mg capsule 100 mg PO Q12H losartan 100 mg tablet 100 mg PO DAILY Levemir FlexPen 100 unit/mL (3 mL) insulin pen 60 unit SUBCUT QAM Januvia 100 mg tablet 100 mg PO DAILY cholecalciferol (vitamin D3) 1,250 mcg (50,000 unit) capsule 1,250 mcg PO Q7D Lantus Solostar U-100 Insulin 100 unit/mL (3 mL) insulin pen 60 unit SUBCUT QA Discharge Orders: Discharge Order (Routine); Ordered 09/20/23 Ordered By: Zoran Mckenna Referrals: Ethan Rider [Primary Care Provider] - Transfer Attestations Time Spent in Transfer Care: greater than 30 min Quality Metrics Clinical Quality Measures [ No reported AMI, CVA or VTE this stay] Coding Level of Care Code Acute Code for Chg Fwd Diagnoses HTN (hypertension) I10 DM type 2 (diabetes mellitus, type 2) E11.9 Upper respiratory infection J06.9 Penile implant failure T83.410A Generalized weakness R53.1
[2023-09-20 11:54] LABS: Glucose Point of Care 208 mg/dL (70-110)
[2023-09-20] MEDS: potassium chloride ER 20 mEq Tablet 40 MEQ PO (12:07)
[2023-09-20] MEDS: amlodipine 10 mg Tablet PO (12:07)
[2023-09-20] MEDS: lisinopril 10 mg Tablet PO (12:07)
--- NOTE | 2023-09-20 12:54 | PC.NURSE ---
pt signed release of information for for her dgtr Kinsey Pt's dgtr called via phone and was sorry in regards to her mother's behavior has been belligerent to staff. She was telling nurse that she is not sure if her mother has taken her meds or she takes meds for her mood. She asked if she can picker box operator her mother. Nurse suggested that she can picker box operator her mom to help the pt get some rest and for her mother to have some space to rest and get her thoughts clearer. Dgtr would like me then to transfer her call to her dad's room. After the dgtr's call, pt's started to yell down the hallways and was verbally telling about her thoughts to how she will go down the road and be ran over. [employer] and nurse and house sup followed her for her safety. Security alerted. Informed pt and he said, she is not Dari. She is not her. I told her to get some help. Reassured pt that his is in ER for evaluation.
[2023-09-20] MEDS: insulin lispro 100 unit/1 mL SUBCUT ×3 (13:34→22:16)
[2023-09-20 17:45] LABS: Glucose Point of Care 141 mg/dL (70-110)
--- NOTE | 2023-09-20 19:19 | PC.NURSE ---
report called to elizabet pt room # is at unit 6A room 6143. Hand off report to nurse Renate.
[2023-09-20 21:26] LABS: Glucose Point of Care 199 mg/dL (70-110)
[2023-09-20] MEDS: cefTRIAXone 1,000 MG in sodium chloride 0.9% (plus) 50 ML 100 MG IV (22:07)
== END 2023-09-20 23:57 | disposition short-term general hospital (02) | DRG 194 ==
LOC: ER 22:15 → CSU 09-19 00:05
PROVIDERS: Admitting Provider Internal Medicine; Emergency Provider Emergency Medicine; Family Provider Family Medicine; PCP Family Medicine; Visit Provider Internal Medicine
DX: J15.9 Unspecified bacterial pneumonia (principal); T83.410A Breakdown (mechanical) of implanted penile prosthesis, initial encounter; J10.1 Influenza due to other identified influenza virus with other respiratory manifestations; E11.9 Type 2 diabetes mellitus without complications; I10 Essential (primary) hypertension; E78.5 Hyperlipidemia, unspecified; R00.0 Tachycardia, unspecified; Y82.9 Unspecified medical devices associated with adverse incidents; Z79.82 Long term (current) use of aspirin; Z79.4 Long term (current) use of insulin; Z79.84 Long term (current) use of oral hypoglycemic drugs
CPT/HCPCS: 36415; 36416; 70450; 71045; 71275; 74177; 76882; 80053; 80307; 81001; 82962; 83605; 83735; 83880; 84443; 85025; 85378; 85730; 87040; 87081; 87486; 87581; 87633; 87880; 93005; 94664; 96365; 96367; 96372; 96375; 96376; 99285; J0360; J0456; J0696; J1644; J1815; J2185; J3475; J3490; J7030; J7050; J7120; Q9967